=== PATIENT | female | born 1955 | race Caucasian/White ===

== ENCOUNTER → 2017-08-13 | Outpatient (CLI) | payer MEDICARE, BC | LOC: BHSO 13:53 | DX: F41.1 Generalized anxiety disorder (principal) ==

== ENCOUNTER → 2017-09-16 | Outpatient (CLI) | payer MEDICARE, BC | LOC: BHSO 11:00 | DX: F41.1 Generalized anxiety disorder (principal) | CPT/HCPCS: G0463 ==